=== PATIENT | male | born 1980 | race Caucasian/White ===

== ENCOUNTER 2025-02-02 12:34 | Emergency (ER) | payer OTHER ==
[2025-02-02] MEDS: Sodium Chloride 0.9% 10 ML Syringe FLUSH PRN (13:03)
[2025-02-02] MEDS: Iopamidol 755 Mg/ML 100 ML Bottle IVPUSH ONE (13:03)
[2025-02-02] MEDS: Ondansetron 4 MG/2 ML SDV IVPUSH ONE (13:04)
[2025-02-02] MEDS: Sodium Chloride 0.9% 10 ML Syringe FLUSH ONE (13:04)
[2025-02-02 13:13] LABS: BASOPHILS ABSOLUTE AUTO 0.1 K/mm3 (0.0-0.2); BASOPHILS PERCENT AUTO 0.7 % (0.0-1.0); EOSINOPHILS ABSOLUTE AUTO 0.2 K/mm3 (0.0-0.4); EOSINOPHILS PERCENT AUTO 1.3 % (0.0-6.0); IMMATURE GRAN ABSOLUTE AUTO 0.09 K/mm3 (0.00-0.05); IMMATURE GRAN PERCENT AUTO 0.7 % (0.0-0.4); LYMPHOCYTES ABSOLUTE AUTO 2.9 K/mm3 (1.0-4.8); LYMPHOCYTES PERCENT AUTO 23.6 % (24.0-44.0); MEAN PLATELET VOLUME 9.8 fl (9.4-12.4); MONOCYTES ABSOLUTE AUTO 1.0 K/mm3 (0.0-0.8); MONOCYTES PERCENT AUTO 8.0 % (0.0-8.0); NEUTROPHILS ABSOLUTE AUTO 7.9 K/mm3 (1.8-7.7); NEUTROPHILS PERCENT AUTO 65.7 % (41.0-71.0); NRBC ABSOLUTE 0.00 (0.00-0.02); NRBC PERCENT 0.0 % (0.0-0.2); PLATELET COUNT,PLT 283 K/mm3 (150-400); RED BLOOD CELL COUNT 3.74 M/mm3 (4.52-5.90); WHITE BLOOD CELL COUNT,WBC 12.07 K/mm3 (3.9-11.3)
[2025-02-02 13:24] LABS: INR 1.06
[2025-02-02 13:25] LABS: PTT,PARTIAL THROMBOPLSTIN TIME 23.4 SECONDS (21.7-31.4)
[2025-02-02 13:30] LABS: A/G RATIO 1.2 (1-2); CHLORIDE,CL 101.0 mEq/L (98-107); CREATININE 1.8 mg/dL (0.7-1.3); EST CRCL DRUG DOSING (CG) 56.28 mL/min; ESTIMATED GFR 46.0 mL/min (>60); POTASSIUM,K 4.0 mEq/L (3.5-5.1); SODIUM,NA 140.0 mEq/L (136-145)
[2025-02-02 13:49] LABS: ALANINE AMINOTRANSFERASE,ALT 118.0 U/L (16-63); ASPARTATE AMNIOTRANSFERASE,AST 43.0 U/L (15-37); BILIRUBIN TOTAL 0.8 mg/dL (0.2-1.0); BLOOD UREA NITROGEN,BUN 27.0 mg/dL (7-18); CARBON DIOXIDE,CO2 26.0 mEq/L (21-32); GLUCOSE RANDOM 136.0 mg/dL (70-99); PROTEIN TOTAL,TP 8.0 g/dl (6.4-8.2); TROPONIN I HIGH SENSITIVITY 11.0 pg/mL (<=76)
== END 2025-02-02 15:30 | disposition home or self-care (01) ==
LOC: JD.ED 12:34
DX: G43.109 Migraine with aura, not intractable, without status migrainosus (principal); I65.22 Occlusion and stenosis of left carotid artery; N28.9 Disorder of kidney and ureter, unspecified; M25.78 Osteophyte, vertebrae; R79.89 Other specified abnormal findings of blood chemistry; I10 Essential (primary) hypertension; I25.2 Old myocardial infarction; E78.00 Pure hypercholesterolemia, unspecified; F17.200 Nicotine dependence, unspecified, uncomplicated; Z86.16 Personal history of COVID-19; Z79.84 Long term (current) use of oral hypoglycemic drugs; Z79.899 Other long term (current) drug therapy
CPT/HCPCS: 36415; 70450; 70496; 70498; 80053; 82947; 84484; 85025; 85610; 85730; 93005; 96374; 99284; A9270; J2405; Q9967